=== PATIENT | female | born 1960 ===

== ENCOUNTER → 2019-04-12 08:43 | Day surgery (SDC) | payer BC ==
[~2019-04-12 08:43] MED LIST: Acetaminophen TAB* 325 MG ONE; Acetaminophen TAB* 325 MG PO ONE; Buffered Lidocaine 1% SYRIN* 1 ML/SYRINGE INTRADERM ONE; Bupivacaine 0.25% SDV PF* 10 ML VIAL INJ ONE; Bupivacaine 0.5%* 50 ML MDV VIAL ONE; Dexamethasone IV* 4 MG/ML 1 ML (4 MG) ONE; DiMENhydriNATE IV* 50 MG/ML VIAL IV PUSH PRN; Famotidine IV* 10 MG/ML 2 ML (20 mg) ONE; Gabapentin CAP(*) 300 MG ONE; Gabapentin CAP(*) 300 MG PO ONE; HYDROcodone/ACETAMIN 5-325 MG* 1 TAB PO PRN; KETAMINE HCL* 50 MG/ML 10 ML VIAL ONE; Ketorolac INJ* 30 MG/ML 1 ML VIAL ONE; Lactated Ringers 1000 ML Bag* 1,000 ML IV SCH; Lidocaine 2% PF * 5 ML VIAL ONE; Midazolam* 1 MG/ML 2 ML VIAL (2 MG) ONE; Naloxone* 0.4 MG/ML 1 ML VIAL IV PRN; Ondansetron INJ* 2 MG/ML VIAL IV PRN; Ondansetron INJ* 2 MG/ML VIAL ONE; PROCHLORPERAZINE INJ 5 MG/ML 2 ML VIAL IV PRN; Propofol* 10 MG/ML 20 ML BTL ONE; Scopolamine 1.5 mg* PATCH ONE; Scopolamine PATCH Remove* 1 NOTE MISC PATCH OFF ONE; ceFAZolin 2 GM PREMIX in ORs 2 GM/50 ML BAG ONE; diPHENhydraMINE IV* 50 MG/ML 1 ml VIAL (BENADRYL) IV PRN; fentaNYL* 50 MCG/ML 2 ML VIAL (100 MCG VIAL) IV PRN; fentaNYL* 50 MCG/ML 2 ML VIAL (100 MCG VIAL) ONE
--- NOTE | 2019-04-12 11:07 | OP ---
Operative Report - Blank - Operative Report Date of Operation: 04/12/19 Note: PATIENT: Davina Lind DATE OF : 1960 DATE OF SURGERY: 04/12/2019 SURGEON: Faisal Niño MD CARRY ALL DRIVER: MARIELENA Jarrett, whos assistance was necessary for positioning, retraction, help with instrumentation, and closure. ANESTHESIOLOGIST: Dr. 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 ANESTHESIA: LMA IMPLANTS: none TOURNIQUET TIME: Less than 30 minutes with a well-padded thigh tourniquet at 250mmHg SPECIMENS: none ESTIMATED BLOOD LOSS: minimal COMPLICATIONS: none STATUS: Stable from the operating room to the recovery room and then home. INDICATIONS FOR PROCEDURE: Davina has had relcalcitrant plantar fasciitis despite extensive non-op treatment. Both operative and non operative treatment alternatives were reviewed. Further, the nature and risks of surgery were reviewed in careful detail, in the office as well as the pre-operative holding area. Our discussions regarding the risks of surgery included, but were not limited to, infection, wound problems, nerve injury, neuroma, RSD, persistent symptoms, blood clot, persistent symptoms, failure of the surgery, and even the remote chance of catastrophic complication. DESCRIPTION OF PROCEDURE: The patient was seen in the preoperative holding unit and informed written consent was obtained. The appropriate extremity was marked. The patient was then brought to the operating room and carefully positioned on the operating room table. Anesthesia was induced. All bony prominences were padded with great care. A well-padded thigh tourniquet was placed. A chlorhexidine based pre- scrub was performed followed by a chloraprep prep and drape in standard sterile fashion. A surgical safety pause was then conducted in which we confirmed the appropriate patient, extremity, planned procedure, availability of equipment, indication and administration of prophylactic antibiotics, and DVT prophylaxis in the form of a compression boot on the non-surgical extremity. I began with Esmarch exsanguination of the limb and inflated the tourniquet. I then made an approximately 3-cm incision at the posteromedial calf. I carried the dissection through the soft tissue and divided the crural fascia longitudinally. I then exposed the fascia of the gastrocnemius muscle. Great care was taken to protect the sural nerve throughout this procedure. I cleared all adhesions from the posterior aspect of the gastrocnemius fascia and then transected this in its entirety from medially to laterally. I then identified the plantaris tendon, which was also tight medially. This was transected. These procedures had the effect of improving the ankle dorsiflexion to approximately 10 degrees. I then again confirmed that the sural nerve was in continuity. We irrigated copiously. We then used #3-0 Monocryl for the subdermal layer and 3-0 nylon for the skin. A sterile dressing was applied. The patient was then awakened from anesthesia and transferred to the recovery room in stable condition. There were no complications. All needle and sponge counts were correct at the end of the case. ATTESTATION: I attest I was present and scrubbed and performed the critical portions of the procedure myself. POSTOPERATIVE PLAN: The patient will remain [id number] for two weeks. At that time, sutures will be removed and Steri-Strips applied. The patient will remain in the boot until four to six weeks postoperatively. We will begin physical therapy after the first postoperative visit.
[2019-04-12 12:58] VITALS: BP 126/69
== END | disposition home or self-care (01) ==
LOC: OR 08:43
PROVIDERS: ATTEND Orthopaedic Surgery
DX: M72.2 Plantar fascial fibromatosis (principal); M67.02 Short Achilles tendon (acquired), left ankle; Z85.3 Personal history of malignant neoplasm of breast; K21.9 Gastro-esophageal reflux disease without esophagitis; E03.9 Hypothyroidism, unspecified
CPT/HCPCS: A9270-GY; J0690; J1100; J1885; J2250; J2405; J2704; J3010; J3490

== ENCOUNTER 2021-02-02 09:12 | Observation (INO) ==
[2021-02-02] MEDS ORDERED: Prochlorperazine 5 mg/ml 2 ml VIAL (10 mg) IV ONE (10:09)
[2021-02-02] MEDS ORDERED: Famotidine IV 10 MG/ML 2 ml VIAL (20 mg) IV SLOW PU ONE (10:10)
[2021-02-02] MEDS ORDERED: NS 0.9% 1000 ml BAG 1,000 ML IV SCH (10:15)
[2021-02-02 10:18] LABS: ABS Basophils 0.1 10^3/ul (0-0.2); ABS Lymphocytes 1.7 10^3/ul (1.0-4.8); ABS Monocytes 0.9 10^3/ul (0-0.8); ABS Neutrophils 7.4 10^3/ul (1.5-7.7); Eosinophil % 0.1 %; Hematocrit 41 % (35-47); Hemoglobin 13.6 g/dL (12.0-16.0); Lymphocyte % 16.6 %; Mean Corpuscular HGB Conc 34 g/dL (31-36); Mean Corpuscular Hemoglobin 31 pg (27-31); Mean Corpuscular Volume 91 fL (80-97); Red Blood Count 4.46 10^6 /uL (3.70-4.87); Red Cell Distribution Width 14 % (10-15); White Blood Count 10.1 10^3/uL (3.5-10.8)
[2021-02-02 10:30] LABS: ALT 12 U/L (7-52); AST 15 U/L (13-39); Albumin 4.2 g/dL (3.2-5.2); Albumin/Globulin Ratio 1.6 (1-3); Alkaline Phosphatase 80 U/L (35-149); Anion Gap 8 mmol/L (2-11); Blood Urea Nitrogen 9 mg/dL (6-24); CO2 Carbon Dioxide 25 mmol/L (22-32); Calcium 9.4 mg/dL (8.6-10.3); Chloride 108 mmol/L (101-111); Globulin 2.6 g/dL (2-4); Glucose 84 mg/dL (70-100); Lipase < 10 U/L (11.0-82.0); Potassium 3.7 mmol/L (3.5-5.0); Sodium 141 mmol/L (135-145); Total Protein 6.8 g/dL (6.4-8.9)
[2021-02-02 10:47] LABS: Platelet Count Platelets clumped. 10^3/uL (150-450)
[2021-02-02] MEDS ORDERED: HYDROmorphone 1 MG/1 ML SYRINGE IV SLOW PU PRN (10:52)
[2021-02-02] MEDS ORDERED: Ondansetron 4 mg VIAL 2 MG/ML 2 ml VIAL IV PRN (10:52)
[2021-02-02] MEDS ORDERED: Prochlorperazine 5 mg/ml 2 ml VIAL (10 mg) IV PRN (10:58)
[2021-02-02 11:58] LABS: Rapid COVID-19 Molecular Detected (Undetected)
[2021-02-02] MEDS ORDERED: Iohexol 300 (CONTRAST) 10 ML SDV IV ONE (13:56)
[2021-02-02] MEDS: Lactated Ringers 1000 ml BAG 1,000 ML IV SCH ×2 (14:50→22:58)
[2021-02-03 05:36] LABS: Hematocrit 37 % (35-47); Hemoglobin 12.6 g/dL (12.0-16.0); Mean Corpuscular HGB Conc 34 g/dL (31-36); Mean Corpuscular Hemoglobin 31 pg (27-31); Mean Corpuscular Volume 92 fL (80-97); Red Blood Count 4.08 10^6 /uL (3.70-4.87); Red Cell Distribution Width 14 % (10-15); White Blood Count 7.4 10^3/uL (3.5-10.8)
[2021-02-03 05:39] LABS: Calcium 8.6 mg/dL (8.6-10.3); Potassium 3.7 mmol/L (3.5-5.0)
[2021-02-03] MEDS ORDERED: Dextrose 50% Syringe 50 ml 25 GM/50 ML SYRINGE IV PUSH PRN (05:49)
[2021-02-03] MEDS: D5W 1/2 NS 1000 ml BAG 1,000 ML IV SCH ×2 (08:09→23:10)
[2021-02-03 08:25] LABS: ABS Basophils 0.1 10^3/ul (0-0.2); ABS Eosinophils 0.2 10^3/ul (0-0.6); ABS Lymphocytes 1.5 10^3/ul (1.0-4.8); ABS Monocytes 0.8 10^3/ul (0-0.8); ABS Neutrophils 4.8 10^3/ul (1.5-7.7); Lymphocyte % 20.5 %; Nucleated Red Blood Cells % 0.1; Platelet Count Platelets clumped. 10^3/uL (150-450)
[2021-02-03] MEDS ORDERED: Bupivacaine 0.25% SDV PF 10 ML VIAL INJ ONE (16:12)
[2021-02-03] MEDS ORDERED: Lidocaine 1% w EPI 1:200,000 SDV 30 ML VIAL ONE (16:13)
[2021-02-03] MEDS ORDERED: Dexamethasone IV 4 MG/ML VIAL 1 ml VIAL IV SLOW PU ONE (16:19)
[2021-02-03] MEDS ORDERED: Famotidine IV 10 MG/ML 2 ml VIAL (20 mg) IV ONE (16:19)
[2021-02-03] MEDS ORDERED: Midazolam 2 mg/2 ml VIAL 1 mg/ml 2 ml VIAL (2 mg) ONE (16:19)
[2021-02-03] MEDS ORDERED: fentaNYL 100 mcg/2 ml 50 MCG/ML VIAL ONE (16:19)
[2021-02-03] MEDS ORDERED: Buffered Lidocaine 1% SYRIN 1 ml INTRADERM ONE (16:19)
[2021-02-03] MEDS ORDERED: Propofol 10 MG/ML 20 ML BTL ONE (16:20)
[2021-02-03] MEDS ORDERED: Rocuronium 50 mg VIAL 10 mg/ml 5 ml VIAL (50 mg) ONE ×2 (16:20→18:26)
[2021-02-03] MEDS ORDERED: Lidocaine 2% PF 5 ML VIAL ONE (16:20)
[2021-02-03] MEDS ORDERED: Dexamethasone IV 4 MG/ML VIAL 1 ml VIAL ONE ×2 (16:33→17:20)
[2021-02-03] MEDS ORDERED: Famotidine IV 10 MG/ML 2 ml VIAL (20 mg) ONE (16:33)
[2021-02-03] MEDS ORDERED: Naloxone 0.4 mg VIAL 0.4 mg/ml 1 ml VIAL IV PRN (16:42)
[2021-02-03] MEDS ORDERED: Morphine 4 MG/ML VIAL (1 ml) IV PRN (16:42)
[2021-02-03] MEDS ORDERED: fentaNYL 100 mcg/2 ml 50 MCG/ML VIAL IV PRN (16:42)
[2021-02-03] MEDS ORDERED: Prochlorperazine 5 mg/ml 2 ml VIAL (10 mg) IV PRN (16:42)
[2021-02-03] MEDS ORDERED: Succinylcholine 200 mg VIAL 20 mg/ml 10 ml VIAL (200 mg) ONE (16:45)
[2021-02-03] MEDS ORDERED: ceFAZolin 2 GM in NS PREMIX 2 GM/100 ML BAG IVPB ONE (16:56)
[2021-02-03] MEDS ORDERED: Lactated Ringers 1000 ml BAG 1,000 ML IV SCH (17:00)
[2021-02-03] MEDS ORDERED: Ondansetron 4 mg VIAL 2 MG/ML 2 ml VIAL ONE (17:20)
[2021-02-03] MEDS ORDERED: Acetaminophen IV 1 GM/100ML 100 ML IV ONE (17:20)
[2021-02-03] MEDS ORDERED: Phenylephrine 40 mcg/mL 10mL (400mcg) SYRINGE ONE (17:24)
[2021-02-03] MEDS ORDERED: HYDROmorphone 1 MG/1 ML SYRINGE ONE (17:39)
[2021-02-03] MEDS ORDERED: Glycopyrrolate IV 0.2 MG/ML 1 ML VIAL ONE (17:42)
[2021-02-03] MEDS ORDERED: Prochlorperazine 5 mg/ml 2 ml VIAL (10 mg) ONE (20:25)
[2021-02-04] MEDS: D5W 1/2 NS 1000 ml BAG 1,000 ML IV SCH (07:09)
[2021-02-04 12:11] VITALS: BP 127/65
== END 2021-02-04 14:30 | disposition home or self-care (01) ==
LOC: ED 09:12 → EDHOLD 11:25 → INTOOBSV 11:25 → SSU 11:57
PROVIDERS: ADMIT Surgery; ATTEND Surgery